=== PATIENT | male | born 1970 | race Caucasian/White ===

== ENCOUNTER 2017-04-04 14:30 | Emergency (ER) | payer OTHER ==
[~2017-04-04] VITALS: Ht 175.3 cm; Wt 75.7 kg
[2017-04-04 14:32] VITALS: BP 155/89
== END 2017-04-04 15:30 | disposition home or self-care (01) ==
LOC: ED 15:00
DX: H92.02 Otalgia, left ear (principal); E11.9 Type 2 diabetes mellitus without complications
CPT/HCPCS: 99281

== ENCOUNTER 2020-05-04 08:07 | Inpatient (IN) | payer OTHER ==
[~2020-05-04] VITALS: Ht 177.8 cm; Wt 72.8 kg
[2020-05-04] MEDS ORDERED: MIDAZOLAM 1 MG/ML, 2ML ONE (08:12)
[2020-05-04] MEDS ORDERED: NALOXONE 1 MG/ML, 2ML ONE (08:12)
--- NOTE | 2020-05-04 08:25 | NUR ---
portable cxr complete to confirm ET tube placement
[2020-05-04] MEDS ORDERED: NALOXONE 1 MG/ML, 2ML IVPush ONE (08:30)
[2020-05-04] MEDS ORDERED: SODIUM CHLORIDE 0.9% 1,000ML IVBOLUS ONE (08:30)
[2020-05-04] MEDS ORDERED: NALOXONE 8 MG in SODIUM CHLORIDE 0.9% 242 ML IV PRN (08:30)
[2020-05-04] MEDS ORDERED: NOREPINEPHRINE 8 MG in SODIUM CHLORIDE 0.9% 242 ML IV PRN (08:30)
--- NOTE | 2020-05-04 08:32 | NUR ---
bp 72/37, levophed titrated from 0.1mcg/kg/min to 0.15 mcg/kg/min. ok'd peripheral line use for levophed until central line placed
--- NOTE | 2020-05-04 08:38 | NUR ---
bp 130/80, levophed titrated down to 0.12 mcg/kg/min
--- NOTE | 2020-05-04 08:50 | NUR ---
THROUGHPUT RN: LAB CALLED AND STATED ABG TO BE REDRAWN, SAMPLE WAS VENOUS. DISCUSSED WITH PRIMARY VETO FISCHER AND DR. JOHN, BOTH AWARE.
[2020-05-04] MEDS: NALOXONE 4 MG in SODIUM CHLORIDE 0.9% 246 ML IV PRN ×3 (08:51→15:12)
--- NOTE | 2020-05-04 08:51 | NUR ---
narcan drip started at 2mg/hr per MD Bundy's order
--- NOTE | 2020-05-04 08:52 | NUR ---
pt hypertensive at 192/116, levophed gtt stopped. notified.
[2020-05-04 08:54] LABS: BASOPHILS % (AUTO) 1 % (0-1); EOSINOPHILS % (AUTO) 0 % (1-7); LYMPHOCYTES % (AUTO) 16 % (22-44); MEAN CORPUSCULAR HEMOGLOBIN 31.2 pg (27.5-34.5); MEAN CORPUSCULAR HGB CONC 32.4 g/dL (33.2-36.2); MEAN PLATELET VOLUME 7.2 fL (7.4-10.4); MONOCYTES % (AUTO) 6 % (2-9); NEUTROPHILS % (AUTO) 76 % (42-75); PLATELET COUNT 283 x10^3/uL (130-400); RED BLOOD COUNT 3.92 x10^6/uL (4.38-5.82); RED CELL DISTRIBUTION WIDTH 13.9 % (9.4-14.8)
[2020-05-04 08:55] LABS: INTERNATIONAL NORMALIZED RATIO 1.08 (0.93-1.1); MD NO; PROTHROMBIN TIME 11.4 Seconds (9.6-11.5)
--- NOTE | 2020-05-04 08:55 | NUR ---
MD Bundy at bedside for central line placement.
[2020-05-04 08:59] LABS: ALBUMIN 2.8 g/dL (3.4-5.0); ANION GAP 16 mmol/L (5-15); CALCIUM 7.5 mg/dL (8.5-10.1); CHLORIDE 102 mmol/L (98-107)
[2020-05-04 09:02] LABS: ALANINE AMINOTRANSFERASE 50 U/L (12-78); ALKALINE PHOSPHATASE 64 U/L (45-117); BILIRUBIN,TOTAL 0.4 mg/dL (0.2-1.0); CREATININE 1.19 mg/dL (0.7-1.3); TOTAL PROTEIN 5.6 g/dL (6.4-8.2); TROPONIN I 0.021 ng/mL (0.000-0.045)
--- NOTE | 2020-05-04 09:02 | NUR ---
central line placed, awaiting cxr for confirmation of placement, lab at bedside for abg. pt withdraws to painful stimuli at this time.
[2020-05-04] MEDS: MIDAZOLAM 1 MG/ML, 2ML IVPush PRN ×4 (09:07→18:08)
[2020-05-04 09:10] LABS: SALICYLATE LEVEL < 1.7 mg/dL (2.8-20.0)
[2020-05-04] MEDS: PROPOFOL 100 ML IV PRN ×4 (09:11→21:03)
--- NOTE | 2020-05-04 09:11 | NUR ---
propofol started at 5 mcg mcg/kg/min, pt hypertensive, breathing over vent, and making some purposeful movements. versed 4mg IV push administered with MD Gregor fang for rapid sedation.
--- NOTE | 2020-05-04 09:14 | NUR ---
CRITICAL LAB pH. 7.178, BREATHING OVER VENT AT 34. DR. JOHN AND AMADO JUAREZ.
--- NOTE | 2020-05-04 09:20 | NUR ---
MD aware pt hypertensive, breathing over vent, making some purposeful movements. narcan gtt titrated down to 1.5mg/hr per MD order, propofol titrated up to 25mcg/kg/min.
--- NOTE | 2020-05-04 09:22 | NUR ---
repeat CXR done for central line placement, CXR reviewed by COURTNEY Bundy MD ok'd central line for use. pupils are 3mm, equal round and reactive. notified.
--- NOTE | 2020-05-04 09:23 | NUR ---
pt's girlfriend Nasreen at bedside briefly, updated with pt status and POC, girlfriend has left again.
--- NOTE | 2020-05-04 09:25 | NUR ---
vent settings adjusted by RT to at RR 22, TV 550, 50% fio2 and peep of 5.
--- NOTE | 2020-05-04 09:27 | NUR ---
pt remains hypertensive, tachypneic, and breathing over vent. propofol titrated to 35mcg/kg/min.
--- NOTE | 2020-05-04 09:38 | NUR ---
pt medicated per emar with 4 mg versed for sedation per MD Bundy's order, propofol titrated up to 45 mcg/kg/min per MD order. girlfriend back at bedside, updated with POC.
--- NOTE | 2020-05-04 09:50 | NUR ---
MD Renteria at bedside for admit assessment, girlfriend back to bedside, girlfriend updated with POC by .
[2020-05-04] MEDS ORDERED: short acting insulin SQ (09:51)
[2020-05-04] MEDS ORDERED: [UNRECOGNIZED DRUG - OTHER] PO (09:51)
[2020-05-04] MEDS ORDERED: long acting insulin SQ (09:51)
[2020-05-04] MEDS ORDERED: xanax PO (09:51)
--- NOTE | 2020-05-04 09:56 | NUR ---
propofol increased to 50mcg/kg/min.
[2020-05-04] MEDS ORDERED: MIDAZOLAM 1 MG/ML, 2ML IVPush ONE (10:00)
--- NOTE | 2020-05-04 10:05 | NUR ---
warmer placed to pt, warming measures in place. pupils 2mm bilaterally. pt is sinus tach rate 100s on quality assurance monitor body with no ectopy. remains hypertensive but improving at 173/104. NG confirmed by xray, attached to low continuous suction. approx 200mL brown gastric contents emptied. approx 1100 mL clear yellow urine drained via rondon since insertion.
[2020-05-04 10:11] LABS: AMPHETAMINE SCREEN, URINE Negative (Negative); BARBITURATE SCREEN, URINE Negative (Negative); BENZODIAZEPINE SCREEN, URINE Negative (Negative); CANNABINOID SCREEN, URINE Negative (Negative); COCAINE SCREEN, URINE Positive (Negative); METHADONE SCREEN, URINE Negative (Negative); OPIATE SCREEN, URINE Positive (Negative)
--- NOTE | 2020-05-04 10:15 | NUR ---
IO (rt tibia) placed machine captain by ems removed.
[2020-05-04] MEDS ORDERED: LORazepam 2 MG/ML, 1ML ONE (10:19)
[2020-05-04] MEDS ORDERED: LORazepam 2 MG/ML, 1ML IVPush ONE ×2 (10:20→12:00)
--- NOTE | 2020-05-04 10:25 | NUR ---
late entry for 1025: edmd lei notified pt still hypertensive and tachycardic. MD ordered RN to admin 2mg IV push ativan and decrease narcan gtt to 1mg/hr. narcan gtt decreased to 1mg /hr, ativan 2mg IV push administered. pt tolerating well. pupils 2mm bilaterally, pt breathing over vent at rate 22-28, MD aware.
[2020-05-04 10:30] VITALS: BP 171/92
[2020-05-04] MEDS ORDERED: OXYcodone IR 5MG TABLET PO PRN (10:30)
[2020-05-04] MEDS ORDERED: BISACODYL 10 MG SUPP PR PRN (10:30)
[2020-05-04] MEDS ORDERED: POLYETHYLENE GLYCOL 17 GM PACKET PO PRN (10:30)
[2020-05-04] MEDS ORDERED: LORazepam 2 MG/ML, 1ML IVPush PRN (10:30)
[2020-05-04] MEDS ORDERED: ACETAMINOPHEN 325 MG TABLET PO PRN (10:30)
[2020-05-04] MEDS ORDERED: ONDANSETRON 2MG/ML, 2ML IVPush PRN (10:30)
--- NOTE | 2020-05-04 10:36 | NUR ---
report given to VETO Gomez , pt to go to CT then CCU 550. RT at bedside for transport.
--- NOTE | 2020-05-04 10:45 | NUR ---
toribio gtt requested from pharmacy stat to 550
--- NOTE | 2020-05-04 11:16 | NUR ---
pt taken to CT then CCU 550 by this RN and RT Sheeba, color television console monitor in place for entirety of transport. pt tolerated CT and transport well, sinus tach rate 100s on color television console monitor with no ectopy. updated report given at bedside to VETO Gomez.
[2020-05-04] MEDS: LACTATED RINGERS 1,000 ML IV SCH ×2 (11:23→18:43)
[2020-05-04] MEDS: AMPICILLIN/SULBACTAM 3 GM in SODIUM CHLORIDE 0.9% 100 ML IV SCH ×3 (12:45→23:36)
[2020-05-04] MEDS ORDERED: PROPOFOL 10 MG/ML, 100ML IV ONE (13:59)
[2020-05-04] MEDS ORDERED: MIDAZOLAM 1 MG/ML, 5ML ONE (13:59)
[2020-05-04] MEDS ORDERED: ROCURONIUM 10MG/ML,5ML ONE (13:59)
[2020-05-04] MEDS ORDERED: VECURONIUM 10 MG ONE (13:59)
[2020-05-04] MEDS: INSULIN LISPRO 100 UNITS/ML, PEN SQ-INSULIN SCH ×3 (14:07→20:04)
[2020-05-04] MEDS: INSULIN GLARGINE 100 UNITS/ML, PEN SQ-INSULIN SCH ×2 (14:08→20:05)
[2020-05-04] MEDS: ENOXAPARIN 40 MG/0.4 ML SQ SCH (14:09)
[2020-05-04] MEDS: FAMOTIDINE 20 MG/2 ML IVPush SCH (20:24)
[2020-05-04] MEDS: morphine SULFATE 10 MG/ML, 1ML IVPush PRN (23:28)
[2020-05-05] MEDS: PROPOFOL 100 ML IV PRN ×6 (02:11→19:32)
[2020-05-05] MEDS: LABETALOL 5MG/ML, 20ML IVPush PRN ×3 (02:12→07:58)
[2020-05-05] MEDS: morphine SULFATE 10 MG/ML, 1ML IVPush PRN ×2 (03:14→12:15)
[2020-05-05] MEDS: LACTATED RINGERS 1,000 ML IV SCH ×2 (03:14→13:54)
[2020-05-05] MEDS: ENALAPRILAT 1.25 MG/ML, 2ML IVPush PRN ×2 (03:35→06:39)
[2020-05-05 03:48] LABS: BASOPHILS % (AUTO) 0 % (0-1); EOSINOPHILS % (AUTO) 0 % (1-7); LYMPHOCYTES % (AUTO) 3 % (22-44); MEAN CORPUSCULAR HEMOGLOBIN 30.8 pg (27.5-34.5); MEAN CORPUSCULAR HGB CONC 33.4 g/dL (33.2-36.2); MEAN PLATELET VOLUME 7.4 fL (7.4-10.4); MONOCYTES % (AUTO) 3 % (2-9); NEUTROPHILS % (AUTO) 93 % (42-75); PLATELET COUNT 355 x10^3/uL (130-400); RED BLOOD COUNT 4.34 x10^6/uL (4.38-5.82); RED CELL DISTRIBUTION WIDTH 13.6 % (9.4-14.8)
[2020-05-05 03:52] LABS: ALBUMIN 2.9 g/dL (3.4-5.0); ANION GAP 7 mmol/L (5-15); CHLORIDE 103 mmol/L (98-107)
[2020-05-05 03:55] LABS: ALANINE AMINOTRANSFERASE 63 U/L (12-78); ALKALINE PHOSPHATASE 61 U/L (45-117); BILIRUBIN,TOTAL 0.5 mg/dL (0.2-1.0); CREATININE 0.74 mg/dL (0.7-1.3); TOTAL PROTEIN 6.2 g/dL (6.4-8.2)
[2020-05-05] MEDS: INSULIN LISPRO 100 UNITS/ML, PEN SQ-INSULIN SCH ×4 (04:02→21:27)
[2020-05-05 04:20] LABS: MD SCAN
[2020-05-05] MEDS: AMPICILLIN/SULBACTAM 3 GM in SODIUM CHLORIDE 0.9% 100 ML IV SCH ×4 (05:05→21:37)
[2020-05-05] MEDS: FAMOTIDINE 20 MG/2 ML IVPush SCH ×2 (08:18→21:26)
[2020-05-05] MEDS ORDERED: SENNA/DOCUSATE TABLET PO SCH (09:00)
[2020-05-05] MEDS: ENOXAPARIN 40 MG/0.4 ML SQ SCH (12:14)
[2020-05-05] MEDS: INSULIN GLARGINE 100 UNITS/ML, PEN SQ-INSULIN SCH ×2 (13:52→21:29)
[2020-05-05 17:07] LABS: BASOPHILS % (AUTO) 0 % (0-1); EOSINOPHILS % (AUTO) 0 % (1-7); LYMPHOCYTES % (AUTO) 4 % (22-44); MEAN CORPUSCULAR HEMOGLOBIN 30.7 pg (27.5-34.5); MEAN CORPUSCULAR HGB CONC 33.6 g/dL (33.2-36.2); MONOCYTES % (AUTO) 5 % (2-9); NEUTROPHILS % (AUTO) 90 % (42-75); PLATELET COUNT 410 x10^3/uL (130-400); RED BLOOD COUNT 4.66 x10^6/uL (4.38-5.82); RED CELL DISTRIBUTION WIDTH 13.7 % (9.4-14.8)
[2020-05-05 17:20] LABS: ALBUMIN 2.6 g/dL (3.4-5.0); ANION GAP 10 mmol/L (5-15); CALCIUM 8.1 mg/dL (8.5-10.1); CHLORIDE 100 mmol/L (98-107)
[2020-05-05 17:23] LABS: ALANINE AMINOTRANSFERASE 54 U/L (12-78); ALKALINE PHOSPHATASE 67 U/L (45-117); BILIRUBIN,TOTAL 0.5 mg/dL (0.2-1.0); CREATININE 0.64 mg/dL (0.7-1.3); TOTAL PROTEIN 6.2 g/dL (6.4-8.2)
[2020-05-05 17:28] LABS: MD SCAN
[2020-05-05] MEDS ORDERED: hydrALAzine 20 MG/ML, 1ML IV PRN (19:30)
[2020-05-05] MEDS: SODIUM CHLORIDE 0.9% 1,000 ML IV SCH (19:33)
[2020-05-05 22:20] LABS: MICROSCOPIC AUTO
[2020-05-06] MEDS ORDERED: NOREPINEPHRINE 8 MG in SODIUM CHLORIDE 0.9% 242 ML IV PRN
[2020-05-06] MEDS ORDERED: MAGNESIUM SULFATE/D5W 100 ML IV ONE (01:00)
[2020-05-06] MEDS ORDERED: MAGNESIUM SULFATE 1 GM in SODIUM CHLORIDE 0.9% 48 ML IV ONE (01:00)
[2020-05-06] MEDS: INSULIN LISPRO 100 UNITS/ML, PEN SQ-INSULIN SCH (03:12)
[2020-05-06 03:20] LABS: BASOPHILS % (AUTO) 1 % (0-1); EOSINOPHILS % (AUTO) 1 % (1-7); LYMPHOCYTES % (AUTO) 10 % (22-44); MEAN CORPUSCULAR HEMOGLOBIN 31.2 pg (27.5-34.5); MEAN CORPUSCULAR HGB CONC 34.1 g/dL (33.2-36.2); MEAN PLATELET VOLUME 7.8 fL (7.4-10.4); MONOCYTES % (AUTO) 5 % (2-9); NEUTROPHILS % (AUTO) 84 % (42-75); PLATELET COUNT 404 x10^3/uL (130-400); RED BLOOD COUNT 4.57 x10^6/uL (4.38-5.82); RED CELL DISTRIBUTION WIDTH 13.8 % (9.4-14.8)
[2020-05-06 03:30] LABS: ALANINE AMINOTRANSFERASE 47 U/L (12-78); ALBUMIN 2.4 g/dL (3.4-5.0); ANION GAP 9 mmol/L (5-15); CALCIUM 8.5 mg/dL (8.5-10.1); CHLORIDE 111 mmol/L (98-107); CREATININE 0.57 mg/dL (0.7-1.3)
[2020-05-06 03:32] LABS: ALKALINE PHOSPHATASE 57 U/L (45-117); BILIRUBIN,TOTAL 0.8 mg/dL (0.2-1.0); TOTAL PROTEIN 5.7 g/dL (6.4-8.2); TRIGLYCERIDES 69 mg/dL (50-200)
[2020-05-06 04:09] LABS: MD SCAN
[2020-05-06] MEDS ORDERED: DESMOPRESSIN 4 MCG/ML IVPush ONE (05:00)
[2020-05-06] MEDS ORDERED: POTASSIUM PHOSPHATE 22 MEQ in SODIUM CHLORIDE 0.9% 500 ML IV ONE (05:00)
[2020-05-06] MEDS: AMPICILLIN/SULBACTAM 3 GM in SODIUM CHLORIDE 0.9% 100 ML IV SCH (05:20)
[2020-05-06] MEDS: SODIUM CHLORIDE 0.9% 1,000 ML IV SCH (06:00)
[2020-05-06 10:18] LABS: INTERNATIONAL NORMALIZED RATIO 0.99 (0.93-1.1); PROTHROMBIN TIME 10.5 Seconds (9.6-11.5)
[2020-05-06] MEDS ORDERED: LACTATED RINGERS 1,000 ML IV SCH (10:30)
== END 2020-05-06 09:44 | disposition expired | DRG 208 ==
LOC: ED 08:52 → EDIP 09:20 → CCU 11:00
PROVIDERS: ADMIT Internal Medicine; ATTEND Internal Medicine
PROC: 5A1945Z Respiratory Ventilation, 24-96 Consecutive Hours (ICD-10-PCS; principal; 2020-05-04)
PROC: 0BH17EZ Insertion of Endotracheal Airway into Trachea, Via Natural or Artificial Opening (ICD-10-PCS; 2020-05-04)
PROC: 02HV33Z Insertion of Infusion Device into Superior Vena Cava, Percutaneous Approach (ICD-10-PCS; 2020-05-04)
PROC: B548ZZA Ultrasonography of Superior Vena Cava, Guidance (ICD-10-PCS; 2020-05-04)
PROC: 0BJ08ZZ Inspection of Tracheobronchial Tree, Via Natural or Artificial Opening Endoscopic (ICD-10-PCS; 2020-05-05)
PROC: 03HY32Z Insertion of Monitoring Device into Upper Artery, Percutaneous Approach (ICD-10-PCS; 2020-05-05)
PROC: 0T9B70Z Drainage of Bladder with Drainage Device, Via Natural or Artificial Opening (ICD-10-PCS; 2020-05-05)
DX: J69.0 Pneumonitis due to inhalation of food and vomit (principal); G93.41 Metabolic encephalopathy; J96.00 Acute respiratory failure, unspecified whether with hypoxia or hypercapnia; G93.6 Cerebral edema; G93.5 Compression of brain; E87.1 Hypo-osmolality and hyponatremia; E87.2 Acidosis; G93.1 Anoxic brain damage, not elsewhere classified; R57.9 Shock, unspecified; Z99.11 Dependence on respirator [ventilator] status; D64.9 Anemia, unspecified; I10 Essential (primary) hypertension; I46.9 Cardiac arrest, cause unspecified; Z20.822 Contact with and (suspected) exposure to COVID-19; S00.03XA Contusion of scalp, initial encounter; W18.39XA Other fall on same level, initial encounter; Y93.89 Activity, other specified; Y92.89 Other specified places as the place of occurrence of the external cause; Y99.8 Other external cause status; T40.1X1A Poisoning by heroin, accidental (unintentional), initial encounter; Z66 Do not resuscitate; F11.90 Opioid use, unspecified, uncomplicated; F10.129 Alcohol abuse with intoxication, unspecified; E88.09 Other disorders of plasma-protein metabolism, not elsewhere classified; E11.65 Type 2 diabetes mellitus with hyperglycemia
CPT/HCPCS: 31624; 36415; 36600; 70450; 71045; 71250; 74176; 80053; 80074; 80299; 80307; 80320; 80329; 81001; 82803; 82962; 83036; 83735; 83880; 84100; 84478; 84484; 85025; 85610; 86850; 86900; 87070; 87081; 87205; 87635; 87806; 93005; 94002; 94003; G0378; J0295; J1650; J2250; J2597; J2704; J3475; G0475; G0480; J1815; J2060; J2270; J2310; J7030; J7040; J7050; J7120; U0003

== ENCOUNTER 2020-05-06 09:45 | Inpatient (IN) | payer OTHER ==
[~2020-05-06] VITALS: Ht 175.3 cm; Wt 76.7 kg
[~2020-05-06 09:45] MED LIST: [UNRECOGNIZED DRUG - OTHER] PO; long acting insulin SQ; short acting insulin SQ; xanax PO
[2020-05-06] MEDS ORDERED: POTASSIUM CHLORIDE 60 MEQ in SODIUM CHLORIDE 0.9% 100 ML IV PRN (11:30)
[2020-05-06] MEDS ORDERED: POTASSIUM PHOSPHATE 15 MMOL in SODIUM CHLORIDE 0.9% 250 ML IV PRN (11:30)
[2020-05-06] MEDS ORDERED: REGULAR INSULIN 100 UNITS in SODIUM CHLORIDE 0.9% 99 ML IV SCH (11:30)
[2020-05-06] MEDS ORDERED: FLUCONAZOLE 200 MG/100 ML 100 ML IV ONE (11:30)
[2020-05-06] MEDS ORDERED: POTASSIUM PHOSPHATE 21 MMOL in SODIUM CHLORIDE 0.9% 250 ML IV PRN (11:30)
[2020-05-06] MEDS ORDERED: LEVOTHYROXINE 100 MCG INJ IV ONE (11:30)
[2020-05-06] MEDS ORDERED: POTASSIUM CHLORIDE PMX 20MEQ/100 ML IVPB PRN (11:30)
[2020-05-06] MEDS ORDERED: PHENYLEPHRINE 50 MG in SODIUM CHLORIDE 0.9% 245 ML IV PRN (11:30)
[2020-05-06] MEDS ORDERED: CALCIUM CHLORIDE 13.6 MEQ in SODIUM CHLORIDE 0.9% 50 ML IV PRN (11:30)
[2020-05-06] MEDS ORDERED: MAGNESIUM SULFATE PMX 4GM/100M 100 ML IVPB PRN (11:30)
[2020-05-06] MEDS ORDERED: DEXTROSE 50%, 50ML SYRINGE IVPush PRN (11:30)
[2020-05-06] MEDS ORDERED: POTASSIUM PHOSPHATE 30 MMOL in SODIUM CHLORIDE 0.9% 250 ML IV PRN (11:30)
[2020-05-06] MEDS ORDERED: POTASSIUM CHLORIDE 40 MEQ in SODIUM CHLORIDE 0.9% 100 ML IV PRN (11:30)
[2020-05-06] MEDS ORDERED: MAGNESIUM SULFATE PMX 2GM/50ML 50 ML IVPB PRN (11:30)
[2020-05-06] MEDS: METHYLPREDNISOLONE SOD SUCC IV SCH (12:14)
[2020-05-06] MEDS: DEXTROSE 5% IV SCH (12:14)
[2020-05-06] MEDS: PIPERACILLIN/TAZO 3.375 GM in SODIUM CHLORIDE 0.9% 50 ML IVPB SCH ×2 (12:14→18:32)
[2020-05-06] MEDS: ARTIFICIAL TEARS 15 DROP/ML BOTTLE EACHEYE SCH ×6 (13:30→21:52)
[2020-05-06] MEDS: LEVOTHYROXINE 200 MCG in SODIUM CHLORIDE 0.9% 500 ML IV SCH (13:32)
[2020-05-06 13:55] LABS: INTERNATIONAL NORMALIZED RATIO 0.97 (0.93-1.1); PROTHROMBIN TIME 10.3 Seconds (9.6-11.5)
[2020-05-06 13:57] LABS: ALANINE AMINOTRANSFERASE 45 U/L (12-78); ALBUMIN 2.3 g/dL (3.4-5.0); ANION GAP 4 mmol/L (5-15); BILIRUBIN, DIRECT 0.2 mg/dL (0.1-0.2); CALCIUM 8.2 mg/dL (8.5-10.1); CHLORIDE 112 mmol/L (98-107)
[2020-05-06 13:59] LABS: ALKALINE PHOSPHATASE 60 U/L (45-117); BILIRUBIN,INDIRECT 0.5 mg/dL (0.0-2.0); BILIRUBIN,TOTAL 0.7 mg/dL (0.2-1.0); CREATININE 0.71 mg/dL (0.7-1.3); TOTAL PROTEIN 5.9 g/dL (6.4-8.2); TROPONIN I 0.624 ng/mL (0.000-0.045)
[2020-05-06 14:02] LABS: BASOPHILS % (AUTO) 1 % (0-1); EOSINOPHILS % (AUTO) 0 % (1-7); LYMPHOCYTES % (AUTO) 6 % (22-44); MEAN CORPUSCULAR HEMOGLOBIN 30.8 pg (27.5-34.5); MEAN CORPUSCULAR HGB CONC 33.3 g/dL (33.2-36.2); MEAN PLATELET VOLUME 8.1 fL (7.4-10.4); MONOCYTES % (AUTO) 7 % (2-9); NEUTROPHILS % (AUTO) 86 % (42-75); PLATELET COUNT 364 x10^3/uL (130-400); RED BLOOD COUNT 4.52 x10^6/uL (4.38-5.82)
[2020-05-06 14:15] LABS: MD NO
[2020-05-06] MEDS ORDERED: PLEASE ENTER HEIGHT AND WEIGHT MC SCH (15:30)
[2020-05-06] MEDS: ESOMEPRAZOLE 40 MG IV IVPush SCH (16:12)
[2020-05-06] MEDS: SODIUM CHLORIDE 0.9% 1,000 ML IV SCH (17:00)
[2020-05-06 18:50] LABS: BASOPHILS % (AUTO) 0 % (0-1); EOSINOPHILS % (AUTO) 0 % (1-7); LYMPHOCYTES % (AUTO) 1 % (22-44); MEAN CORPUSCULAR HEMOGLOBIN 30.8 pg (27.5-34.5); MEAN PLATELET VOLUME 7.9 fL (7.4-10.4); MONOCYTES % (AUTO) 1 % (2-9); NEUTROPHILS % (AUTO) 98 % (42-75); PLATELET COUNT 336 x10^3/uL (130-400); RED BLOOD COUNT 4.61 x10^6/uL (4.38-5.82); RED CELL DISTRIBUTION WIDTH 14.1 % (9.4-14.8)
[2020-05-06 19:00] LABS: ALANINE AMINOTRANSFERASE 39 U/L (12-78); ALBUMIN 2.2 g/dL (3.4-5.0); ANION GAP 4 mmol/L (5-15); BILIRUBIN, DIRECT 0.1 mg/dL (0.1-0.2); CALCIUM 8.3 mg/dL (8.5-10.1); CHLORIDE 113 mmol/L (98-107); CREATININE 0.72 mg/dL (0.7-1.3)
[2020-05-06] MEDS: ALBUTEROL SULFATE 2.5MG/0.5ML NEB SCH (19:01)
[2020-05-06 19:05] LABS: ALKALINE PHOSPHATASE 61 U/L (45-117); BILIRUBIN,INDIRECT 0.2 mg/dL (0.0-2.0); BILIRUBIN,TOTAL 0.3 mg/dL (0.2-1.0); TROPONIN I 0.457 ng/mL (0.000-0.045)
[2020-05-06 19:07] LABS: INTERNATIONAL NORMALIZED RATIO 0.96 (0.93-1.1); PROTHROMBIN TIME 10.2 Seconds (9.6-11.5)
[2020-05-06 19:13] LABS: MD SCAN
[2020-05-06] MEDS ORDERED: POTASSIUM CHLORIDE PMX 100 ML IV ONE (22:30)
[2020-05-06] MEDS ORDERED: NS + 20MEQ KCL 1,000 ML IV SCH (22:30)
[2020-05-07] MEDS: PIPERACILLIN/TAZO 3.375 GM in SODIUM CHLORIDE 0.9% 50 ML IVPB SCH ×4 (00:07→18:08)
[2020-05-07] MEDS: ARTIFICIAL TEARS 15 DROP/ML BOTTLE EACHEYE SCH ×12 (00:07→21:39)
[2020-05-07] MEDS: ALBUTEROL SULFATE 2.5MG/0.5ML NEB SCH ×7 (00:36→23:00)
[2020-05-07 00:57] LABS: BASOPHILS % (AUTO) 0 % (0-1); EOSINOPHILS % (AUTO) 0 % (1-7); LYMPHOCYTES % (AUTO) 2 % (22-44); MEAN CORPUSCULAR HEMOGLOBIN 30.9 pg (27.5-34.5); MEAN CORPUSCULAR HGB CONC 33.1 g/dL (33.2-36.2); MEAN PLATELET VOLUME 8.1 fL (7.4-10.4); MONOCYTES % (AUTO) 1 % (2-9); NEUTROPHILS % (AUTO) 97 % (42-75); PLATELET COUNT 339 x10^3/uL (130-400); RED BLOOD COUNT 4.58 x10^6/uL (4.38-5.82); RED CELL DISTRIBUTION WIDTH 13.8 % (9.4-14.8)
[2020-05-07 00:59] LABS: MD NO
[2020-05-07 01:07] LABS: INTERNATIONAL NORMALIZED RATIO 0.98 (0.93-1.1); PROTHROMBIN TIME 10.4 Seconds (9.6-11.5)
[2020-05-07 01:09] LABS: ALANINE AMINOTRANSFERASE 36 U/L (12-78); ALBUMIN 2.2 g/dL (3.4-5.0); ANION GAP 5 mmol/L (5-15); BILIRUBIN, DIRECT 0.2 mg/dL (0.1-0.2); CALCIUM 8.4 mg/dL (8.5-10.1); CHLORIDE 114 mmol/L (98-107)
[2020-05-07 01:14] LABS: ALKALINE PHOSPHATASE 56 U/L (45-117); BILIRUBIN,INDIRECT 0.3 mg/dL (0.0-2.0); BILIRUBIN,TOTAL 0.5 mg/dL (0.2-1.0); TROPONIN I 0.284 ng/mL (0.000-0.045)
[2020-05-07] MEDS: SODIUM CHLORIDE 0.9% 1,000 ML IV SCH ×3 (03:00→23:00)
[2020-05-07] MEDS: VASOPRESSIN 20 UNIT in SODIUM CHLORIDE 0.9% 99 ML IV PRN ×2 (03:02→12:30)
[2020-05-07 07:56] LABS: BASOPHILS % (AUTO) 0 % (0-1); EOSINOPHILS % (AUTO) 0 % (1-7); LYMPHOCYTES % (AUTO) 2 % (22-44); MEAN CORPUSCULAR HEMOGLOBIN 31.2 pg (27.5-34.5); MEAN CORPUSCULAR HGB CONC 33.4 g/dL (33.2-36.2); MEAN PLATELET VOLUME 8.2 fL (7.4-10.4); MONOCYTES % (AUTO) 3 % (2-9); NEUTROPHILS % (AUTO) 95 % (42-75); PLATELET COUNT 319 x10^3/uL (130-400); RED BLOOD COUNT 4.35 x10^6/uL (4.38-5.82)
[2020-05-07] MEDS ORDERED: INSULIN REGULAR 100 UNITS/ML, 3ML VIAL ONE (08:02)
[2020-05-07 08:03] LABS: ALANINE AMINOTRANSFERASE 33 U/L (12-78); ALBUMIN 2.2 g/dL (3.4-5.0); ANION GAP 7 mmol/L (5-15); BILIRUBIN, DIRECT 0.1 mg/dL (0.1-0.2); CALCIUM 8.9 mg/dL (8.5-10.1); CHLORIDE 112 mmol/L (98-107); CREATININE 0.69 mg/dL (0.7-1.3)
[2020-05-07] MEDS: ESOMEPRAZOLE 40 MG IV IVPush SCH (08:07)
[2020-05-07 08:08] LABS: ALKALINE PHOSPHATASE 57 U/L (45-117); BILIRUBIN,INDIRECT 0.3 mg/dL (0.0-2.0); BILIRUBIN,TOTAL 0.4 mg/dL (0.2-1.0); MD NO; TOTAL PROTEIN 5.9 g/dL (6.4-8.2); TROPONIN I 0.208 ng/mL (0.000-0.045)
[2020-05-07 08:31] LABS: MICROSCOPIC NOT IND
[2020-05-07] MEDS: LEVOTHYROXINE 200 MCG in SODIUM CHLORIDE 0.9% 500 ML IV SCH (09:51)
[2020-05-07 10:23] LABS: INTERNATIONAL NORMALIZED RATIO 0.98 (0.93-1.1); PROTHROMBIN TIME 10.4 Seconds (9.6-11.5)
[2020-05-07 12:23] LABS: BASOPHILS % (AUTO) 0 % (0-1); EOSINOPHILS % (AUTO) 0 % (1-7); LYMPHOCYTES % (AUTO) 3 % (22-44); MEAN CORPUSCULAR HEMOGLOBIN 30.5 pg (27.5-34.5); MEAN PLATELET VOLUME 8.4 fL (7.4-10.4); MONOCYTES % (AUTO) 6 % (2-9); NEUTROPHILS % (AUTO) 91 % (42-75); PLATELET COUNT 294 x10^3/uL (130-400); RED BLOOD COUNT 4.16 x10^6/uL (4.38-5.82); RED CELL DISTRIBUTION WIDTH 13.9 % (9.4-14.8)
[2020-05-07 12:24] LABS: MD NO
[2020-05-07 12:32] LABS: INTERNATIONAL NORMALIZED RATIO 0.97 (0.93-1.1); PROTHROMBIN TIME 10.3 Seconds (9.6-11.5)
[2020-05-07 12:35] LABS: ALBUMIN 2.1 g/dL (3.4-5.0); ANION GAP 5 mmol/L (5-15); CALCIUM 8.6 mg/dL (8.5-10.1); CHLORIDE 115 mmol/L (98-107)
[2020-05-07 12:41] LABS: ALANINE AMINOTRANSFERASE 33 U/L (12-78); ALKALINE PHOSPHATASE 53 U/L (45-117); BILIRUBIN, DIRECT 0.1 mg/dL (0.1-0.2); BILIRUBIN,INDIRECT 0.2 mg/dL (0.0-2.0); BILIRUBIN,TOTAL 0.3 mg/dL (0.2-1.0); CREATININE 0.63 mg/dL (0.7-1.3); TOTAL PROTEIN 5.6 g/dL (6.4-8.2); TROPONIN I 0.155 ng/mL (0.000-0.045)
[2020-05-07] MEDS: DEXTROSE 5% IV SCH (12:50)
[2020-05-07] MEDS: METHYLPREDNISOLONE SOD SUCC IV SCH (12:50)
[2020-05-07] MEDS: NS + 20MEQ KCL 1,000 ML IV SCH ×2 (15:10→22:00)
[2020-05-07 18:27] LABS: ALANINE AMINOTRANSFERASE 27 U/L (12-78); ANION GAP 6 mmol/L (5-15); BASOPHILS % (AUTO) 1 % (0-1); BILIRUBIN, DIRECT 0.1 mg/dL (0.1-0.2); CALCIUM 8.6 mg/dL (8.5-10.1); CHLORIDE 119 mmol/L (98-107); CREATININE 0.48 mg/dL (0.7-1.3); EOSINOPHILS % (AUTO) 0 % (1-7); INTERNATIONAL NORMALIZED RATIO 0.96 (0.93-1.1); LYMPHOCYTES % (AUTO) 3 % (22-44); MEAN CORPUSCULAR HEMOGLOBIN 30.4 pg (27.5-34.5); MEAN CORPUSCULAR HGB CONC 32.9 g/dL (33.2-36.2); MEAN PLATELET VOLUME 8.4 fL (7.4-10.4); MONOCYTES % (AUTO) 5 % (2-9); NEUTROPHILS % (AUTO) 91 % (42-75); PLATELET COUNT 274 x10^3/uL (130-400); PROTHROMBIN TIME 10.2 Seconds (9.6-11.5); RED BLOOD COUNT 4.12 x10^6/uL (4.38-5.82)
[2020-05-07 18:29] LABS: MD NO
[2020-05-07 18:32] LABS: ALKALINE PHOSPHATASE 50 U/L (45-117); BILIRUBIN,INDIRECT 0.2 mg/dL (0.0-2.0); BILIRUBIN,TOTAL 0.3 mg/dL (0.2-1.0); TOTAL PROTEIN 5.6 g/dL (6.4-8.2); TROPONIN I 0.106 ng/mL (0.000-0.045)
[2020-05-07] MEDS ORDERED: LACTATED RINGERS 500 ML IVBOLUS ONE (21:30)
[2020-05-08 00:08] LABS: BASOPHILS % (AUTO) 1 % (0-1); EOSINOPHILS % (AUTO) 0 % (1-7); LYMPHOCYTES % (AUTO) 2 % (22-44); MEAN CORPUSCULAR HEMOGLOBIN 30.6 pg (27.5-34.5); MEAN PLATELET VOLUME 8.3 fL (7.4-10.4); MONOCYTES % (AUTO) 4 % (2-9); NEUTROPHILS % (AUTO) 92 % (42-75); PLATELET COUNT 320 x10^3/uL (130-400); RED BLOOD COUNT 4.21 x10^6/uL (4.38-5.82); RED CELL DISTRIBUTION WIDTH 14.3 % (9.4-14.8)
[2020-05-08] MEDS: ARTIFICIAL TEARS 15 DROP/ML BOTTLE EACHEYE SCH ×8 (00:15→13:52)
[2020-05-08] MEDS: PIPERACILLIN/TAZO 3.375 GM in SODIUM CHLORIDE 0.9% 50 ML IVPB SCH ×3 (00:15→12:13)
[2020-05-08 00:16] LABS: INTERNATIONAL NORMALIZED RATIO 0.94 (0.93-1.1)
[2020-05-08 00:17] LABS: ALANINE AMINOTRANSFERASE 28 U/L (12-78); ALBUMIN 2.1 g/dL (3.4-5.0); ANION GAP 6 mmol/L (5-15); BILIRUBIN, DIRECT 0.1 mg/dL (0.1-0.2); CALCIUM 8.7 mg/dL (8.5-10.1); CHLORIDE 117 mmol/L (98-107); CREATININE 0.68 mg/dL (0.7-1.3)
[2020-05-08 00:19] LABS: MD SCAN
[2020-05-08 00:21] LABS: ALKALINE PHOSPHATASE 54 U/L (45-117); BILIRUBIN,INDIRECT 0.2 mg/dL (0.0-2.0); BILIRUBIN,TOTAL 0.3 mg/dL (0.2-1.0); TOTAL PROTEIN 5.9 g/dL (6.4-8.2)
[2020-05-08] MEDS ORDERED: LACTATED RINGERS 500 ML IVBOLUS ONE (01:00)
[2020-05-08] MEDS ORDERED: POTASSIUM CHLORIDE PMX 100 ML IV ONE (01:00)
[2020-05-08] MEDS: ALBUTEROL SULFATE 2.5MG/0.5ML NEB SCH ×3 (03:00→11:09)
[2020-05-08 05:56] LABS: BASOPHILS % (AUTO) 0 % (0-1); EOSINOPHILS % (AUTO) 0 % (1-7); LYMPHOCYTES % (AUTO) 3 % (22-44); MEAN CORPUSCULAR HEMOGLOBIN 30.6 pg (27.5-34.5); MEAN PLATELET VOLUME 8.5 fL (7.4-10.4); MONOCYTES % (AUTO) 5 % (2-9); NEUTROPHILS % (AUTO) 92 % (42-75); PLATELET COUNT 319 x10^3/uL (130-400); RED BLOOD COUNT 4.16 x10^6/uL (4.38-5.82); RED CELL DISTRIBUTION WIDTH 13.8 % (9.4-14.8)
[2020-05-08 05:56] LABS: MICROSCOPIC AUTO
[2020-05-08 06:04] LABS: INTERNATIONAL NORMALIZED RATIO 0.94 (0.93-1.1)
[2020-05-08 06:07] LABS: ANION GAP 5 mmol/L (5-15); CALCIUM 8.9 mg/dL (8.5-10.1); CHLORIDE 121 mmol/L (98-107)
[2020-05-08 06:15] LABS: ALANINE AMINOTRANSFERASE 25 U/L (12-78); ALKALINE PHOSPHATASE 53 U/L (45-117); BILIRUBIN, DIRECT 0.1 mg/dL (0.1-0.2); BILIRUBIN,INDIRECT 0.2 mg/dL (0.0-2.0); BILIRUBIN,TOTAL 0.3 mg/dL (0.2-1.0); TOTAL PROTEIN 5.6 g/dL (6.4-8.2)
[2020-05-08 06:19] LABS: MD SCAN
[2020-05-08] MEDS: LEVOTHYROXINE 200 MCG in SODIUM CHLORIDE 0.9% 500 ML IV SCH (06:58)
[2020-05-08] MEDS: NS + 20MEQ KCL 1,000 ML IV SCH (08:17)
[2020-05-08] MEDS: ESOMEPRAZOLE 40 MG IV IVPush SCH (08:50)
[2020-05-08] MEDS: SODIUM CHLORIDE 0.9% 1,000 ML IV SCH (09:00)
[2020-05-08 11:43] LABS: BASOPHILS % (AUTO) 0 % (0-1); EOSINOPHILS % (AUTO) 0 % (1-7); LYMPHOCYTES % (AUTO) 2 % (22-44); MEAN CORPUSCULAR HEMOGLOBIN 30.5 pg (27.5-34.5); MEAN CORPUSCULAR HGB CONC 32.8 g/dL (33.2-36.2); MEAN PLATELET VOLUME 8.5 fL (7.4-10.4); MONOCYTES % (AUTO) 8 % (2-9); NEUTROPHILS % (AUTO) 90 % (42-75); PLATELET COUNT 328 x10^3/uL (130-400); RED BLOOD COUNT 4.16 x10^6/uL (4.38-5.82)
[2020-05-08 11:54] LABS: ALANINE AMINOTRANSFERASE 23 U/L (12-78); ANION GAP 5 mmol/L (5-15); CALCIUM 9.1 mg/dL (8.5-10.1); CHLORIDE 127 mmol/L (98-107); CREATININE 0.78 mg/dL (0.7-1.3)
[2020-05-08 11:58] LABS: ALKALINE PHOSPHATASE 54 U/L (45-117); BILIRUBIN,TOTAL 0.3 mg/dL (0.2-1.0); TOTAL PROTEIN 5.5 g/dL (6.4-8.2); TROPONIN I 0.105 ng/mL (0.000-0.045)
[2020-05-08 11:59] LABS: BILIRUBIN, DIRECT < 0.1 mg/dL (0.1-0.2); BILIRUBIN,INDIRECT 0.2 mg/dL (0.0-2.0)
[2020-05-08] MEDS: METHYLPREDNISOLONE SOD SUCC IV SCH (12:00)
[2020-05-08] MEDS: DEXTROSE 5% IV SCH (12:00)
[2020-05-08 12:10] LABS: INTERNATIONAL NORMALIZED RATIO 0.92 (0.93-1.1); MD SCAN; PROTHROMBIN TIME 9.8 Seconds (9.6-11.5)
[2020-05-08] MEDS ORDERED: hydrALAzine 20 MG/ML, 1ML ONE (12:55)
[2020-05-08] MEDS ORDERED: hydrALAzine 20 MG/ML, 1ML IV ONE (13:00)
[2020-05-08] MEDS ORDERED: FENTANYL PF 250 MCG/5ML ONE ×2 (14:56→15:06)
[2020-05-08] MEDS ORDERED: ROCURONIUM 10MG/ML,5ML ONE (15:53)
[2020-05-09] MEDS ORDERED: DEXTROSE 5% 100 ML IV SCH (13:00)
== END 2020-05-08 15:36 | disposition expired | DRG 287 ==
LOC: UNDOADMIN 09:45 → CCU 09:45
PROC: 4A023N6 Measurement of Cardiac Sampling and Pressure, Right Heart, Percutaneous Approach (ICD-10-PCS; principal; 2020-05-07)
PROC: B2111ZZ Fluoroscopy of Multiple Coronary Arteries using Low Osmolar Contrast (ICD-10-PCS; 2020-05-07)
PROC: 0T9B30Z Drainage of Bladder with Drainage Device, Percutaneous Approach (ICD-10-PCS; 2020-05-07)
DX: R07.9 Chest pain, unspecified (principal)
CPT/HCPCS: 36415; 36600; 71045; 80048; 80076; 81001; 81003; 82150; 82330; 82803; 82962; 83036; 83605; 83690; 83735; 84100; 84484; 85025; 85610; 85730; 86850; 86900; 87086; 93005; 93306; 93356; 93460; 94003; 94640; 94667; 94668; C1769; C1894; G0378; J1815; J2543; J2930; J3010; J3480; J7120; J0360; J1450; J2370; J3475; J7040; J7050; Q9967